=== PATIENT | male | born 1970 | race Caucasian/White ===

== ENCOUNTER 2024-11-13 07:54 | Observation (INO) | payer OTHER, SELFPAY ==
[2024-11-13] VITALS (8 sets, daily range): BP systolic 123–154; BP diastolic 58–77; PULSE 67–91; RESP 16–20; TEMP 36.4–36.8; O2SAT 96–100; BMI 25.7
--- NOTE | 2024-11-13 08:04 | ED.GENADULT ---
HPI - General Adult General Stated complaint: food bolus Time Seen by Provider: 11/13/24 07:57 History of Present Illness HPI narrative: 54-year-old gentleman with a history of thyroid surgery has had food stuck in the upper esophagus previously. Was seen at [facility] earlier today discussed with general surgeon, Dr. Talbert, accepted in transfer with anticipation that he will taken to the operating room. is immediately available in the ER when patient arrives. Exam Initial Vital Signs Initial Vital Signs: General: Alert appears uncomfortable, spitting out secretions. Respiratory: Able to speak in full sentences, no obvious respiratory distress Skin: No obvious rashes, warm and dry Neurologic: Grossly intact no obvious asymmetries or abnormalities Psych: appropriate insight and affect, cooperative Course Orders Ordered: Sodium Chloride (Normal Saline 0.9%) 1,000 mls @ 1,000 mls/hr IV BOLUS ONE Stop: 11/13/24 09:02 Medical Decision Making MDM Narrative Medical decision making narrative: 54-year-old gentleman with likely hot dog stuck in the upper esophagus. Initially seen with your evaluation done at [facility]. Accepted in transfer by . Seen in the emergency department and taken to the OR suite for disimpaction. Discharge Plan Departure Patient Disposition: Admitted to Surgery Clinical Impression: Esophageal obstruction due to food impaction Admit Date/Time: 11/13/24 08:03 Admit Provider: Juarez Talbert
--- NOTE | 2024-11-13 08:18 | P.HP_ITS ---
History of Present Illness History of Present Illness Date Patient Seen: 11/13/24 Time Patient Seen: 08:18 Chief complaint: food bolus Narrative: The patient is a 54-year-old gentleman who presents with an esophageal foreign body. Yesterday evening about 10 30, the patient was eating a hot dog and a friend made him last and he swallowed it whole without being able to chew it. He states the food has been lodged in his esophagus. He presented to [facility] were several of pharmacological attempts were made to move the food bolus. He was given glucagon, nitro paste, and nitroglycerin all without any success. He was struggling with his secretions. While at [facility] he vomited once and a small piece of hot dog came up but he said it was not nearly the amount that he thought he had swallowed. [facility] Social History Smoking Status: Current every day smoker Review of Systems Review of Systems ROS: Yes All systems reviewed with the patient and are negative except as otherwise documented Exam Vital Signs (past 8 hours): - 11/13/24 08:04 Temperature 98.3 F Pulse Rate 67 Respiratory Rate 16 Blood Pressure 132/62 Pulse Oximetry 98 Oxygen Delivery Method Room Air Oxygen Delivery Method Room Air Narrative Exam Narrative: The patient is alert and oriented. HEENT is remarkable for the patient being edentulous. Neck is supple and nontender Chest reveals intermittent inspiratory and expiratory rhonchi. Cardiac reveals a regular rate and rhythm Abdomen was protuberant, soft, nontender, with active bowel sounds Extremities reveal full range of motion Neuro is grossly intact Assessment & Plan Assessment and plan (1) Esophageal obstruction due to food impaction: Status: Acute Plan We will plan an EGD with extraction of an esophageal foreign body. Indication, planned procedure, and inherent risks were explained to the patient. He appears to understand and agrees to proceed as outlined. Time-Based Coding :: [TOTAL MINUTES] spent with patient and on the chart (including review of chart, obtaining history, exam, reviewing outside data, placing orders, documenting exam and treatment plan, and counseling patient) on [DATE]. [employer] Document charge(s): Yes
[2024-11-13] MEDS: LACTATED RINGERS 1,000 ML 42 ML IV (08:50)
--- NOTE | 2024-11-13 08:50 | SUR.HOLD ---
Patient here via EMS from [facility]; patient lives alone and states that he has no one to pick him up after procedure today. Advised patient that hospital policy dictates he must have a responsible security patrol driver after any procedures involving sedation. Patient states that his mother lives in [place], over two hours away. Relayed information to general surgeon and anesthesia provider. Advised patient that it may be necessary for him to stay in the post recovery phase for a few hours until it is determined that he can safely get home via public transportation if necessary. V/U.
--- NOTE | 2024-11-13 09:36 | P.OP_ITS ---
Operative Date/Time/Diagnoses Date of procedure: 11/13/24 Time of procedure: 09:36 Pre-op diagnosis: Esophageal foreign body Post-op diagnosis: same Procedure & Clinicians Procedure: Esophagogastroduodenoscopy with extraction esophageal foreign body Same procedure(s) as scheduled: Yes Indications: The patient is a 54-year-old gentleman who presents with an esophageal foreign body. Yesterday evening about 10 30, the patient was eating a hot dog and a friend made him last and he swallowed it whole without being able to chew it. He states the food has been lodged in his esophagus. He presented to [facility] were several of pharmacological attempts were made to move the food bolus. He was given glucagon, nitro paste, and nitroglycerin all without any success. He was struggling with his secretions. While at [facility] he vomited once and a small piece of hot dog came up but he said it was not nearly the amount that he thought he had swallowed. Surgeon: ED* *Temp Click Yes if Unassisted: Yes Anesthesia Type: General Operative Notes Findings: The patient had an impacted hot dog in the distal 1/3 of his esophagus. Closure Type: not applicable Specimen(s): none sent Applied: none Estimated Blood Loss (mL): 0 Blood products transfused: none Procedure in detail: After appropriate patient identification, the patient remained on the gurney and was brought into the endoscopy suite. After achieving adequate general anesthesia, the patient was then placed in left lateral decubitus position. After completion of the time-out, the endoscope was inserted through the mouth through the upper esophageal sphincter down to the obstruction. The obstruction was removed using an entrapped at in multiple passes. Once the impaction was removed, the scope easily entered the stomach. The patient was then transferred to the PACU in good condition having sustained no blood loss. Complications: none Post-operative Condition: stable Disposition: PACU
[2024-11-13] MEDS: ALBUTEROL/IPRATROPIUM 3 ML AMPUL INH (09:38)
--- NOTE | 2024-11-13 10:49 | SUR.PHASEII ---
Patient refusing to stay for extended period of time after administration of propofol, even after risks of leaving explained. Patient states that he does not drive and will take a taxi or Uber home to [place]. AMA form signed willingly by patient. Walked patient out to main entrance; patient steady on his feet and wanting to know where he can smoke a cigarette and directions to the [place] and bus stop. Notified Dr Talbert of events.
== END 2024-11-13 10:52 | disposition home or self-care (01) ==
LOC: ED 08:03 → AC 08:04
PROVIDERS: Admitting Provider Surgery Trauma Surgery; Emergency Provider Emergency Medicine; Referring Provider Emergency Medicine; Visit Provider Surgery Trauma Surgery
PROC: 0DJ08ZZ Inspection of Upper Intestinal Tract, Via Natural or Artificial Opening Endoscopic (ICD-10-PCS; CPT 43247; principal; 2024-11-13 09:00)
DX: T18.128A Food in esophagus causing other injury, initial encounter (principal); W44.F3XA Food entering into or through a natural orifice, initial encounter; F17.210 Nicotine dependence, cigarettes, uncomplicated; Z91.199 Patient's noncompliance with other medical treatment and regimen due to unspecified reason
CPT/HCPCS: 43247; 99281; G0378; J0330; J1100; J2250; J2310; J2405; J2704; J3010